=== PATIENT | female | born 1985 | race Caucasian/White ===

== ENCOUNTER 2019-12-15 19:18 | Emergency (ER) | payer BC ==
[2019-12-15 21:35] VITALS: BP 118/65
== END 2019-12-15 21:33 | disposition home or self-care (01) | DRG 605 ==
LOC: ED 19:18
PROC: 0HQGXZZ Repair Left Hand Skin, External Approach (ICD-10-PCS; principal; 2019-12-15)
DX: S61.012A Laceration without foreign body of left thumb without damage to nail, initial encounter (principal); V86.95XA Unspecified occupant of 3- or 4- wheeled all-terrain vehicle (ATV) injured in nontraffic accident, initial encounter